=== PATIENT | female | born 1980 | race Caucasian/White ===

== ENCOUNTER 2016-07-12 07:08 | Emergency (ER) | payer BC ==
[2016-07-12 07:25] VITALS: BP 135/97
[2016-07-12] MEDS ORDERED: Ondansetron ODT TAB* 4 MG PO ONE (08:23)
--- NOTE | 2016-07-12 12:05 | UC ---
Toney Bustillo Anna, scribed for Amada Thompson MD on 07/12/16 at 0757 . HPI Febrile Illness - HPI Summary HPI Summary: Patient is a 36 y/o female coming to [facility] [place] [facility] [place] with achy all over, vomiting and diarrhea, sniffles, and frontal h/a that began approx 1:00 yesterday morning (appro x36 hr ago). Per triage notes, the patient describes the current severity of the symptoms as 3/10. Difficulty sleeping 2/2 discomfort and subj fever / chills. She additionally reports headache, fever, chills, body aches, abdominal cramping, and some rhinorrhea. Denies problems with urination. She has kept down one bottle of water since the symptoms began. She received her flu shot this year. No rash. Minimal cough. No particular sore throat. Currently on menstrual period. No melena. No brbpr. - History of Current Complaint Hx Obtained From: Patient - Allergy/Home Medications Allergies/Adverse Reactions: Allergies Allergy/AdvReac Type Severity Reaction Status Date / Time No Known Allergies Allergy Verified 06/09/14 09:23 Home Medications: Home Medications oxyCODONE/Acetamin 5/325 MG* [Percocet 5/325 TAB*] 07/12/16 [History] PMH/Surg Hx/FS Hx/Imm Hx Previously Healthy: Yes Endocrine/Hematology History: Denies: Hx Diabetes, Hx Thyroid Disease Cardiovascular History: Denies: Hx Congestive Heart Failure, Hx Hypertension Respiratory History: Reports: Hx Asthma - in childhood Denies: Hx Chronic Obstructive Pulmonary Disease (COPD) GI History: Denies: Hx Ulcer History: Denies: Hx Renal Disease - Surgical History Surgery Procedure, Year, and Place: uterine polyps removed Infectious Disease History: No Infectious Disease History: Denies: Hx Clostridium Difficile, Hx Hepatitis, Hx Human Immunodeficiency Virus (HIV), Hx of Known/Suspected MRSA, Hx Shingles, Hx Tuberculosis, Hx Known/ Suspected VRE, Hx Known/Suspected VRSA, History Other Infectious Disease, Traveled Outside the [place] in Last 30 Days - Family History Known Family History: Positive: Hypertension - Grandfather, Diabetes - Grandfather - Social History Occupation: Employed Full-time Lives: With Family Alcohol Use: Rare Substance Use Type: Reports: None Smoking Status (MU): Never Smoked Tobacco Review of Systems Constitutional: Fever, Chills Skin: Negative Eyes: Negative ENT: Nasal Discharge Respiratory: Negative Cardiovascular: Negative Gastrointestinal: Abdominal Pain, Vomiting, Diarrhea Genitourinary: Negative Motor: Negative Neurovascular: Negative Musculoskeletal: Myalgia Neurological: Headache Psychological: Negative All Other Systems Reviewed And Are Negative: Yes Physical Exam Triage Information Reviewed: Yes Vital Signs: Initial Vital Signs Temp 99.7 F 07/12/16 07:20 Pulse 98 07/12/16 07:20 Resp 18 07/12/16 07:20 BP 135/97 07/12/16 07:20 Pulse Ox 100 07/12/16 07:20 Vital Signs Reviewed: Yes Eye Exam: Normal ENT Exam: Normal Neck exam: Normal - No adenopathy appreciated Respiratory Exam: Normal - Chest non-tender, lungs clear, normal breath sounds, no respiratory distress, no accessory muscle use. Cardiovascular Exam: Normal - RRR, No murmur, pulses normal - sitting up, brisk capillary refill Abdomen Description: Positive: Nontender, No Organomegaly, Soft Bowel Sounds: Positive: Present Musculoskeletal Exam: Normal Musculoskeletal: Positive: Strength Intact Neurological Exam: Normal - Nonfocal, grossly intact Psychological Exam: Normal - Conversing easily and appropriately Skin Exam: Normal - no visible or reported rash Course/Dx - Course Course Of Treatment: No new problems in CCC. Considered below differential diagnoses. Feels a bit better s/p zofran. Thirsty. Drinks water little by little. Influenza negative. (see below). Poct urine dip (pt on menst period now) -reviewed with pt. + 500wbc's, +++ blood. I suspect contamination, also current menstrual period. However, will send cx, concomitant uti is possible. D/w pt. Script will be exscribed if needed. She will call in 2 days to check status as well. Poct strep neg. Zofran x 1 here. Certainly acute gastroenteritis. However, I am suspicious of flu-like illness. D/w pt. She is interested in starting tamiflu. Check blood work. CBC, crp / sed, cmp. Rx Zofran odt. F/u PCP recommended next week. Seek medical attention sooner for worse or new problems in the meantime. - Diagnoses Clinic Provider Diagnoses: Acute gastroenteritis. Suspicious concomitant flu- like illness. Discharge - Discharge Plan Condition: Stable Disposition: HOME Prescriptions: Ondansetron ODT TAB* [Zofran Odt TAB*] 4 mg PO Q6H PRN #12 tab.odt PRN Reason: Nausea Oseltamivir Phosphate [Tamiflu] 75 mg PO BID #10 cap Forms: *Work Release Referrals: Edmundo Presley MD [Primary Care Provider] - Additional Instructions: Please follow up with your primary care provider. Seek medical attention for worse or new problems in the meantime. Zofran as needed for nausea. Drink plenty of fluids, as much as possible. Blood work today - cbc, cmp, crp, sed r. Re blood in urine. Culture has been sent. Please have your urine rechecked in a couple weeks to ensure blood is gone. The documentation as recorded by the Toney valdes Anna accurately reflects the service I personally performed and the decisions made by me, Amada Thompson MD.
[2016-07-12 12:45] LABS: Hematocrit 42 % (35-47); Hemoglobin 13.7 g/dl (12.0-16.0); Mean Corpuscular HGB Conc 33 g/dl (31-36); Mean Corpuscular Hemoglobin 28 pg (27-31); Mean Corpuscular Volume 86 fL (80-97); Mean Platelet Volume 8 um3 (7.4-10.4); Red Blood Count 4.85 10^6/ul (4.0-5.4); Red Cell Distribution Width 13 % (10.5-15); White Blood Count 19.8 10^3/ul (3.5-10.8)
[2016-07-12 12:58] LABS: Albumin 4.1 g/dL (3.2-5.2); BUN/Creatinine Ratio 16.9 (8-20); C Reactive Protein 51.87 mg/L (< 5.00); Calcium 9.3 mg/dL (8.6-10.3); EGFR African American 119.8 (>60); EGFR Non-African American 93.1 (>60); Globulin 3.2 g/dL (2-4); Potassium 3.5 mmol/L (3.5-5.0); Total Bilirubin 0.9 mg/dL (0.2-1.0); Total Protein 7.3 g/dL (6.4-8.9)
[2016-07-12 14:39] LABS: Erythrocyte Sed Rate 27 mm/Hr (0-14)
== END 2016-07-12 09:17 | disposition home or self-care (01) ==
LOC: UCEAST 07:08
DX: K52.9 Noninfective gastroenteritis and colitis, unspecified (principal); R50.9 Fever, unspecified
CPT/HCPCS: 36415; 80053; 81002; 85025; 85652; 86140; 87086; 87502; 87651; 99212; A9270-GY; G0463

== ENCOUNTER 2016-07-13 15:41 | Inpatient (IN) | payer BC ==
[2016-07-13] MEDS ORDERED: NS 0.9% 1000 ML* 1,000 ML IV ONE (20:03)
[2016-07-13 20:34] LABS: Hematocrit 39 % (35-47); Hemoglobin 12.7 g/dl (12.0-16.0); Mean Corpuscular HGB Conc 33 g/dl (31-36); Mean Corpuscular Hemoglobin 28 pg (27-31); Mean Corpuscular Volume 86 fL (80-97); Mean Platelet Volume 8 um3 (7.4-10.4); Red Blood Count 4.55 10^6/ul (4.0-5.4); Red Cell Distribution Width 13 % (10.5-15); White Blood Count 13.9 10^3/ul (3.5-10.8)
[2016-07-13 20:52] LABS: ALT 60 U/L (7-52); AST 24 U/L (13-39); Albumin 3.8 g/dL (3.2-5.2); Alkaline Phosphatase 146 U/L (34-104); Amylase 21 U/L (29-103); Anion Gap 10 mmol/L (2-11); BUN/Creatinine Ratio 12.6 (8-20); Blood Urea Nitrogen 11 mg/dL (6-24); C Reactive Protein 189.33 mg/L (< 5.00); CO2 Carbon Dioxide 24 mmol/L (22-32); Chloride 97 mmol/L (101-111); EGFR African American 94.7 (>60); EGFR Non-African American 73.7 (>60); Globulin 3.5 g/dL (2-4); Glucose 93 mg/dL (70-100); Lipase 20 U/L (11.0-82.0); Potassium 3.2 mmol/L (3.5-5.0); Sodium 131 mmol/L (133-145); Total Protein 7.3 g/dL (6.4-8.9)
--- NOTE | 2016-07-13 21:26 | RAD ---
Indication: Right upper quadrant pain. Real-time sonography of the right upper quadrant was performed. The liver measures 18 cm in length. No focal lesions or intrahepatic biliary duct dilatation is noted. The gallbladder is partially distended. Gallbladder wall thickening is noted. Echogenic material is noted on the dependent portion of the gallbladder with posterior acoustic shadowing consistent with gallstones. Additionally there are nonshadowing nondependent areas within the gallbladder which may represent cholesterol polyps. A small amount of pericholecystic fluid is noted. The patient does have a sonographic Desai's sign. The common duct measures up to 5 mm which is not dilated. Right kidney measures 11.2 x 4.3 x 5.4 cm. No hydronephrosis is noted. The pancreas demonstrates no mass or pancreatic ductal dilatation. Aorta and inferior vena cava are unremarkable. IMPRESSION: DISTENDED GALLBLADDER WITH GALLBLADDER WALL THICKENING AND ECHOGENIC MATERIAL CONSISTENT WITH GALLSTONES AND LIKELY POLYPS. THE PATIENT DOES HAVE A POSITIVE SONOGRAPHIC DESAI'S SIGN. NO BILIARY DUCTAL DILATATION IS NOTED.
[2016-07-13 21:42] LABS: Urine Bacteria Absent (Absent); Urine Bilirubin Negative (Negative); Urine Glucose Negative (Negative); Urine Nitrite Negative (Negative)
[2016-07-13] MEDS ORDERED: Ondansetron INJ* 2 MG/ML VIAL IV ONE (22:01)
[2016-07-13] MEDS ORDERED: fentaNYL* 50 MCG/ML 2 ML VIAL (100 MCG VIAL) IV SLOW PU ONE (22:01)
[2016-07-13] MEDS: KCL 10 MEQ/50 ML IVPREMIX* 10 MEQ/50 ML BAG IV SCH (22:08)
[2016-07-13] MEDS ORDERED: Acetaminophen TAB* 325 MG PO PRN (22:08)
[2016-07-13] MEDS ORDERED: Piperac/Tazob 3.375 gm in NS* 3.375 GM/100 ML BAG IVPB ONE (22:15)
[2016-07-13] MEDS ORDERED: NS 0.9% 1000 ML* 1,000 ML IV SCH (22:15)
--- NOTE | 2016-07-13 22:56 | ED ---
Danie Bustillo Adam, scribed for Pal Richardson MD on 07/13/16 at 2026 . GI/ HPI - HPI Summary HPI Summary: Pt is a 36 year old female presenting with abdominal pain and vomiting. She began vomiting at 01:00 in the morning 2 days ago. The vomiting persisted so she went to urgent care yesterday. They called her with the results today and told her to come to the ED because her WBC count was over 20,000 and her liver function and CRP were elevated. Pt also c/o right-sided abdominal pain whenever she takes a deep breath. She denies diarrhea and constipation. Her last BM was yesterday morning. PMHx of ovarian cysts. She denies any Hx of gallbladder disease. No tobacco use. FMHx of HTN, HLD, CA, and cholecystectomy. - History of Current Complaint Chief Complaint: EDAbdPain Time Seen by Provider: 07/13/16 20:02 Stated Complaint: WHITE BLOOD COUNT 2000 ELEVATED LIVER FUNCTION Hx Obtained From: Patient Onset/Duration: Started Days Ago, Atraumatic, Still Present Timing: Constant, Lasting Days Severity: Moderate Current Severity: Moderate Pain Intensity: 4 Location of Pain: RUQ, RLQ Associated Signs and Symptoms: Positive: Nausea, Vomiting. Negative: Constipation, Diarrhea Aggravating Factor(s): Deep Breaths Alleviating Factor(s): Nothing - Allergy/Home Medications Allergies/Adverse Reactions: Allergies Allergy/AdvReac Type Severity Reaction Status Date / Time No Known Allergies Allergy Verified 07/13/16 16:55 PMH/Surg Hx/FS Hx/Imm Hx Endocrine/Hematology History: Denies: Hx Diabetes, Hx Thyroid Disease Cardiovascular History: Denies: Hx Congestive Heart Failure, Hx Hypertension Respiratory History: Reports: Hx Asthma - in childhood Denies: Hx Chronic Obstructive Pulmonary Disease (COPD) GI History: Denies: Hx Ulcer History: Denies: Hx Renal Disease - Surgical History Surgery Procedure, Year, and Place: uterine polyps removed Infectious Disease History: No Infectious Disease History: Denies: Hx Clostridium Difficile, Hx Hepatitis, Hx Human Immunodeficiency Virus (HIV), Hx of Known/Suspected MRSA, Hx Shingles, Hx Tuberculosis, Hx Known/ Suspected VRE, Hx Known/Suspected VRSA, History Other Infectious Disease, Traveled Outside the [place] in Last 30 Days - Family History Known Family History: Positive: Hypertension - Grandfather, Diabetes - Grandfather, Other - HLD, CA, cholecystectomy - Social History Occupation: Employed Full-time Lives: With Family - Alcohol Use: Rare Hx Substance Use: No Substance Use Type: Reports: None Hx Tobacco Use: No Smoking Status (MU): Never Smoked Tobacco Review of Systems Positive: Fever Positive: Abdominal Pain, Vomiting. Negative: Diarrhea All Other Systems Reviewed And Are Negative: Yes Physical Exam - Summary Physical Exam Summary: VITAL SIGNS: Reviewed. GENERAL: Patient is an obese female who is lying comfortable in the stretcher. Patient is not in any acute respiratory distress. HEAD AND FACE: Normocephalic and atraumatic. EYES: PERRLA, EOMI x 2, No injected conjunctiva. EARS: Hearing grossly intact. Ear canals and tympanic membranes are WNL. MOUTH: Oropharynx within normal limits. NECK: Supple, trachea is midline, no adenopathy, no JVD. CHEST: Symmetric, no tenderness at palpation LUNGS: Clear to auscultation bilaterally. No wheezing or crackles. CVS: RRR,, S1 and S2 present, no murmurs or gallops appreciated. ABDOMEN: Soft, RUQ tenderness. No signs of distention. Positive bowel sounds. No rebound no guarding, and no masses palpated. No abdominal bruit or pulsations. EXTREMITIES: FROM in all major joints, no edema, no cyanosis or clubbing. NEURO: Alert and oriented x 3. No acute neurological deficits. Speech is normal. SKIN: Dry and warm Triage Information Reviewed: Yes Vital Signs On Initial Exam: Initial Vitals Temp Pulse Resp BP Pulse Ox 100 F 96 16 145/79 99 07/13/16 16:55 07/13/16 16:55 07/13/16 16:55 07/13/16 16:55 07/13/16 16:55 Vital Signs Reviewed: Yes Diagnostics - Vital Signs Vital Signs Temp Pulse Resp BP Pulse Ox 07/13/16 16:55 100 F 96 16 145/79 99 - Laboratory Lab Results: Lab Results 07/13/16 07/13/16 Range/Units 20:15 20:15 WBC 13.9 H (3.5-10.8) 10^3/ul RBC 4.55 (4.0-5.4) 10^6/ul Hgb 12.7 (12.0-16.0) g/dl Hct 39 (35-47) % MCV 86 (80-97) fL MCH 28 (27-31) pg MCHC 33 (31-36) g/dl RDW 13 (10.5-15) % Plt Count 234 (150-450) 10^3/ul MPV 8 (7.4-10.4) um3 Neut % (Auto) 79.6 (38-83) % Lymph % (Auto) 12.5 L (25-47) % Hand % (Auto) 6.5 (1-9) % Eos % (Auto) 0.7 (0-6) % Baso % (Auto) 0.7 (0-2) % Absolute Neuts (auto) 11.1 H (1.5-7.7) 10^3/ul Absolute Lymphs (auto) 1.7 (1.0-4.8) 10^3/ul Absolute Monos (auto) 0.9 H (0-0.8) 10^3/ul Absolute Eos (auto) 0.1 (0-0.6) 10^3/ul Absolute Basos (auto) 0.1 (0-0.2) 10^3/ul Absolute Nucleated RBC 0 10^3/ul Nucleated RBC % 0 Sodium 131 L (133-145) mmol/L Potassium 3.2 L (3.5-5.0) mmol/L Chloride 97 L (101-111) mmol/L Carbon Dioxide 24 (22-32) mmol/L Anion Gap 10 (2-11) mmol/L BUN 11 (6-24) mg/dL Creatinine 0.87 (0.51-0.95) mg/dL Est GFR ( Amer) 94.7 (>60) Est GFR (Non-Af Amer) 73.7 (>60) BUN/Creatinine Ratio 12.6 (8-20) Glucose 93 (70-100) mg/dL Calcium 9.0 (8.6-10.3) mg/dL Total Bilirubin 0.90 (0.2-1.0) mg/dL AST 24 (13-39) U/L ALT 60 H (7-52) U/L Alkaline Phosphatase 146 H (34-104) U/L C-Reactive Protein 189.33 H (< 5.00) mg/L Total Protein 7.3 (6.4-8.9) g/dL Albumin 3.8 (3.2-5.2) g/dL Globulin 3.5 (2-4) g/dL Albumin/Globulin Ratio 1.1 (1-3) Amylase 21 L (29-103) U/L Lipase 20 (11.0-82.0) U/L Beta HCG, Quant < 0.60 mIU/mL Result Diagrams: 07/13/16 20:15 07/13/16 20:15 Lab Statement: Any lab studies that have been ordered have been reviewed, and results considered in the medical decision making process. - Additional Comments Diagnostic Additional Comments: ABDOMEN ULTRASOUND - IMPRESSION: DISTENDED GALLBLADDER WITH GALLBLADDER WALL THICKENING AND ECHOGENIC MATERIAL CONSISTENT WITH GALLSTONES AND LIKELY POLYPS. THE PATIENT DOES HAVE A POSITIVE SONOGRAPHIC FIGUEROA'S SIGN. NO BILIARY DUCTAL DILATATION IS NOTED. GIGU Course/Dx - Course Assessment/Plan: Pt is a 36 year old female presenting with abdominal pain and vomiting. She began vomiting at 01:00 in the morning 2 days ago. The vomiting persisted so she went to urgent care yesterday. They called her with the results today and told her to come to the ED because her WBC count was over 20, 000 and her liver function and CRP were elevated. Pt also c/o right-sided abdominal pain whenever she takes a deep breath. She denies diarrhea and constipation. Blood work shows an increase WBCs 13.9, potassium of 3.2 and increased CRP. RUQ U/S impression: Distended gallbladder wall with thickening and echogenic material consistent with gallstones and likely polyps. No positive murphys sign. I discussed the case with Dr. Solares who came and examined the patient. He decide to admit patient to his service for possible cholecystitis. Patient is hemodynamically stable alert and oriented x 3. - Diagnoses Differential Diagnoses - Female: Cholecystitis, Colitis Provider Diagnoses: Acute cholecystitis - Physician Notifications Discussed Care Of Patient With: Dr. Solares at 22:05. Patient will be admitted. Discharge - Discharge Plan Condition: Stable Disposition: ADMITTED TO [facility] documentation as recorded by the Danie valdes Adam accurately reflects the service I personally performed and the decisions made by me, Pal Richardson MD.
--- NOTE | 2016-07-13 23:39 | HP ---
ADMISSION HISTORY AND PHYSICAL NOTE: DATE OF ADMISSION: 07/13/16 REASON FOR ADMISSION: Right upper quadrant abdominal pain with nausea and vomiting and a fever. HISTORY OF PRESENT ILLNESS: Ms. Cherrie Poe is a healthy 36-year-old obese woman, who on early Monday morning, developed nausea and vomiting with right upper quadrant abdominal pain radiating to her back. She describes the pain as somewhat severe and crampy, "knotting type," and has been persistent ever since that time. She had been most of Monday throwing up with no diarrhea. She had some headache and some muscle aches, but no diarrhea or otherwise change in her bowel habits or other location of abdominal discomfort. She did have a fever and she said she may have had a few chills. Yesterday, her symptoms persisted and she went to the Urgent Care. At that time , she was noted to have a white blood cell count of 19,800 and slight shift in neutrophil percentage. She had elevation of her AST, ALT, and alkaline phosphatase and a C-reactive protein of 51.8. AST and ALT are both in the low 100s. Urine test was negative today and amylase and lipase were normal. She was discharged home. There was a concern that she may have had the flu and was given a Tamiflu. She did receive the flu shot, however, earlier this year. Today, she was called from the Urgent Care stating that we had a white count that was elevated and she needed to go to the emergency room. Here, she was noted to have a temperature of 100; white count down at just about 14,000; and improvement in her liver transaminase. Today, C-reactive protein, however, is 190. test was negative. Today because she had exquisite right upper quadrant abdominal pain, she underwent an ultrasound of her gallbladder, which I did review. This does show a thickened gallbladder wall with stones and sludge, pericholecystic fluid with tenderness on palpation with the ultrasound machine consistent with probable acute calculus cholecystitis. She does give a history of some intermittent right upper quadrant abdominal pain after eating larger fatty meals over the past several years, which lasts for several hours, but has never had symptoms like this. She did receive a flu shot earlier this year. PAST MEDICAL HISTORY: 1. Obesity. 2. Ovarian cysts. PAST SURGICAL HISTORY: Past abdominal surgery is none. MEDICINES: Include: 1. Oxycodone p.r.n. for cysts. 2. Ibuprofen p.r.n. 3. Zantac p.r.n. ALLERGIES: She has no known drug allergies. SOCIAL HISTORY: She has a 10-year-old. She has a male significant other. She works at [employer]. Does not use tobacco. Drinks alcohol on a very rare social basis. REVIEW OF SYSTEMS: Cerebrovascular: No dizziness or visual disturbances. She has had a headache earlier in the week. Cardiovascular: No chest pain or shortness of breath. Pulmonary: No wheezing or hemoptysis. GI: As per above. : No urgency or hematuria. She is completing her menstrual period. PHYSICAL EXAMINATION GENERAL: She is an overweight female with normal attention to grooming. She is quite pleasant, appears to be somewhat fatigued, however. VITAL SIGNS: Temperature is 100, pulse 96, and blood pressure 145/79. HEENT: Her sclerae were anicteric. Oral mucosa is dry. NECK: Without masses. Trachea was midline. LUNGS: Clear to auscultation with normal respiratory effort. HEART: Regular rate and rhythm without murmurs, rubs, or gallops. ABDOMEN: Soft and nondistended. No prior surgical incisions or hernias that I can appreciate. She had normoactive bowel sounds throughout. She had an exquisite tenderness in the right upper quadrant with rigidity in volunteer and guarding as well. PSYCHIATRIC: She is awake, alert, and oriented x3. She has normal judgment and insight. IMPRESSION: Acute calculus cholecystitis, right upper quadrant abdominal pain , and leukocytosis. I cannot explain why the white blood cell count is somewhat lower today, but she certainly may have started out with the more typical viral illness. It seems to have developed into an acute calculus cholecystitis by history and clinical exam as well as the ultrasound findings. I discussed these findings with both patient and her significant other here in the emergency room, but I recommend that she would be admitted and kept n.p.o. with plans for cholecystectomy tomorrow. We will start intravenous antibiotics and keep her n.p.o. and give her analgesia as needed. In addition, her potassium will be repleted and she will be given antiemetic as needed. I also explained to her that the operative time tomorrow is unclear and it will most likely be later in the day due to the schedule and that as a surgical group we work together and depending on operating room availability and surgeon schedules, it may be any of our 5 surgeons who perform the operation and she is comfortable with this. In addition, the procedure of laparoscopic cholecystectomy as well as open cholecystectomy was discussed including the risks, benefits, and alternatives; recovery time; and hospital stay; and her questions were answered. CC: [facility]; Dr. Edmundo Presley in [place] * [id number]/[facility] #: [id number] LEONEL
[2016-07-13] MEDS: Morphine INJ* 2 MG/ML 1 ML CARPUJECT IV PRN (23:44)
[2016-07-13] MEDS: NS 0.9% w/ 20 Meq KCL 1000 ML* 1,000 ML IV SCH (23:58)
[2016-07-14] MEDS: Ondansetron INJ* 2 MG/ML VIAL IV PRN ×3 (00:11→14:04)
[2016-07-14] MEDS: KCL 10 MEQ/50 ML IVPREMIX* 10 MEQ/50 ML BAG IV SCH (00:41)
[2016-07-14] MEDS: Morphine INJ* 2 MG/ML 1 ML CARPUJECT IV PRN (02:07)
[2016-07-14] MEDS ORDERED: Morphine INJ* 4 MG/ML 1 ML CARPUJECT ONE (02:26)
[2016-07-14] MEDS ORDERED: PROCHLORPERAZINE INJ 5 MG/ML 2 ML VIAL IV ONE (02:30)
[2016-07-14] MEDS: Morphine INJ* 4 MG/ML 1 ML CARPUJECT IV PRN ×7 (04:02→16:35)
[2016-07-14] MEDS: Piperac/Tazob 3.375 gm in NS* 3.375 GM/100 ML BAG IVPB SCH ×3 (05:49→23:17)
[2016-07-14 06:11] LABS: Hematocrit 35 % (35-47); Hemoglobin 11.7 g/dl (12.0-16.0); Mean Corpuscular HGB Conc 33 g/dl (31-36); Mean Corpuscular Hemoglobin 28 pg (27-31); Mean Corpuscular Volume 86 fL (80-97); Mean Platelet Volume 8 um3 (7.4-10.4); Red Blood Count 4.11 10^6/ul (4.0-5.4); Red Cell Distribution Width 13 % (10.5-15); White Blood Count 11.9 10^3/ul (3.5-10.8)
[2016-07-14 06:29] LABS: Albumin 3.1 g/dL (3.2-5.2); Calcium 7.8 mg/dL (8.6-10.3); EGFR African American 121.8 (>60); EGFR Non-African American 94.7 (>60); Globulin 2.9 g/dL (2-4); Potassium 3.7 mmol/L (3.5-5.0); Total Bilirubin 0.8 mg/dL (0.2-1.0)
[2016-07-14] MEDS: NS 0.9% w/ 20 Meq KCL 1000 ML* 1,000 ML IV SCH ×2 (10:47→22:54)
[2016-07-14] MEDS ORDERED: Morphine INJ* 10 MG/ML 1 ML CARPUJECT ONE (16:28)
[2016-07-14] MEDS ORDERED: Midazolam* 1 MG/ML 2 ML VIAL (2 MG) ONE (18:16)
[2016-07-14] MEDS ORDERED: fentaNYL* 50 MCG/ML 2 ML VIAL (100 MCG VIAL) ONE ×3 (18:16→19:53)
[2016-07-14] MEDS ORDERED: Ondansetron INJ* 2 MG/ML VIAL ONE (18:18)
[2016-07-14] MEDS ORDERED: Lidocaine 2% MPF* 2 ML VIAL ONE (18:18)
[2016-07-14] MEDS ORDERED: Propofol* 10 MG/ML 20 ML BTL IV PUSH ONE ×2 (18:18→19:20)
[2016-07-14] MEDS ORDERED: Dexamethasone IV* 4 MG/ML 1 ML (4 MG) ONE (18:18)
[2016-07-14] MEDS ORDERED: Succinylcholine* 20 MG/ML 10 ML VIAL ONE (18:18)
[2016-07-14] MEDS ORDERED: Heparin VIAL(*) 5000 UNITS/ML VIAL (FIVE THOUSAND) ONE (18:20)
[2016-07-14] MEDS ORDERED: Bupivacaine 0.25% EPI 200,000* 30 ML SDV ONE (18:49)
[2016-07-14] MEDS ORDERED: Rocuronium* 10 MG/ML VIAL ONE (19:21)
[2016-07-14] MEDS ORDERED: fentaNYL* 50 MCG/ML 2 ML VIAL (100 MCG VIAL) IV PRN (20:13)
[2016-07-14] MEDS ORDERED: Scopolamine 1.5 mg* PATCH TRANSDERM PRN (20:13)
[2016-07-14] MEDS ORDERED: Metoclopramide IV* 5 MG/ML 2 ML VIAL IV PRN (20:13)
[2016-07-14] MEDS ORDERED: HYDROmorphone INJ* 2 MG/ML CARPUJECT SYRINGE ONE (20:16)
[2016-07-14] MEDS: HYDROmorphone INJ* 1 MG/ML CARPUJECT SYRINGE IV PRN ×5 (20:19→20:49)
[2016-07-14] MEDS: Heparin VIAL(*) 5000 UNITS/ML VIAL (FIVE THOUSAND) SUBCUT SCH (22:57)
[2016-07-15] MEDS: Morphine INJ* 4 MG/ML 1 ML CARPUJECT IV PRN ×2 (02:05→04:18)
[2016-07-15] MEDS: HYDROcodone/ACETAMIN 5-325 MG* 1 TAB PO PRN ×3 (02:06→10:19)
[2016-07-15] MEDS ORDERED: Piperac/Tazob 3.375 gm in NS* 3.375 GM/100 ML BAG IVPB SCH (04:00)
--- NOTE | 2016-07-15 04:56 | OP ---
DATE OF OPERATION: 07/14/16 - ROOM #341 DATE OF : 80 SURGEON: Murphy Cast MD MEMS PROCESS ENGINEER: LOUIS Trinh ANESTHESIOLOGIST: Mona Mercado MD ANESTHESIA: General anesthetic, local infiltration. PRE-OP DIAGNOSIS: Acute cholecystitis. POST-OP DIAGNOSIS: Acute cholecystitis. OPERATIVE PROCEDURE: Laparoscopic cholecystectomy. DESCRIPTION OF PROCEDURE: The patient was supine on the operating room table. After adequate general anesthetic, compression stockings, Connor Hugger warmer, and intravenous antibiotics, the abdomen was prepped with antiseptic, and draped in a sterile fashion. Local infiltrative anesthesia was administered. The right upper quadrant 5 mm site was created and Visiport cannula was placed under direct vision. Insufflation was carried out with carbon dioxide. Additional cannulae 12 mm subxiphoid and 5 mm supraumbilical, and right anterior axillary line placed through small stab wounds under direct vision. The gallbladder was acutely inflamed. Omentum was densely adherent over the dome of the gallbladder. This was taken down using blunt dissection and electrocautery. There was a little oozing, but not too bad and then the omentum was taken away down. The neck of the gladder was not terribly inflamed. In order to achieve retraction, the dome of the gallbladder was opened up and white bile was encountered. Gallbladder was suctioned out and this enabled it to be retracted. There was a stone down at the neck of the gallbladder and this was milked up out of the neck. The cystic duct was quite thickened. It was dissected free and dissection was carried out until the cystic artery was really identified. Additionally dissection was carried out until critical views obtained. Cystic artery was clipped right near the gallbladder and divided. The cystic duct was thick and it was felt to be too big for the clips and therefore the gallbladder cystic duct junction was divided using an Endo PITER stapler with a 45 mm mullen load. The gallbladder was taken off the liver bed using electrocautery. Hemostasis was surprisingly good considering the amount of inflammation. A couple of stones leaked out, but readily captured. The gallbladder was placed in the retrieval bag and then brought out through the subxiphoid site, which needed to be enlarged for that purpose. The operative field was well irrigated with warm saline solution. Free fluid was suctioned out and hemostasis was again confirmed, and again the free fluid was suctioned. The cannula removed. Pneumoperitoneum was allowed to escape. The fascia in the epigastric region was closed with 0 Polysorb and the skin in all cases with 5-0 Polysorb followed by Steri-Strips. She tolerated the procedure well, was brought to the recovery in good condition. No complications. No drains. Pathological specimen, gallbladder. Sponge and instrument counts correct. Estimated blood loss was less than 100 mL. CC: Murphy Cast MD; Dr. Edmundo Presley * [id number]/[facility] #: [id number] [facility]
[2016-07-15] MEDS: Heparin VIAL(*) 5000 UNITS/ML VIAL (FIVE THOUSAND) SUBCUT SCH (06:22)
[2016-07-15 08:03] VITALS: BP 136/59
== END 2016-07-15 11:00 | disposition home or self-care (01) | DRG 263 ==
LOC: ED 15:41 → SSU 22:05 → OBSVTOIN 07-14 08:43
PROVIDERS: ADMIT Surgery; ATTEND Surgery
PROC: 0FT44ZZ Resection of Gallbladder, Percutaneous Endoscopic Approach (ICD-10-PCS; principal; 2016-07-14 16:45)
DX: K80.00 Calculus of gallbladder with acute cholecystitis without obstruction (principal); D68.59 Other primary thrombophilia; Z68.41 Body mass index [BMI] 40.0-44.9, adult; N83.209 Unspecified ovarian cyst, unspecified side; Z82.49 Family history of ischemic heart disease and other diseases of the circulatory system; J45.909 Unspecified asthma, uncomplicated; Z80.9 Family history of malignant neoplasm, unspecified; E66.9 Obesity, unspecified
CPT/HCPCS: 36415; 76705; 80053; 81003; 81015; 82150; 83690; 83735; 84702; 85025; 86140; 88304; C1776; G0378; J0330; J0780; J1100; J1170; J1644; J2250; J2270; J2405; J2543; J2704; J3010; J3480

== ENCOUNTER 2017-06-07 07:40 | Emergency (ER) | payer BC ==
[2017-06-07 07:59] VITALS: BP 124/68
[2017-06-07] MEDS ORDERED: Acetaminophen TAB* 325 MG PO ONE (08:29)
--- NOTE | 2017-06-07 08:38 | UC ---
Shoulder Pain HPI - HPI Summary HPI Summary: Pt presents with right anterior shoulder pain progressive since Monday. Pt denies trauma or repeititve injury. Pain increass with extension and abduction. Pt holding to body for comfort. No paresthesia, color changes of hand, edema, or weakness. pt is RHD. No h/o shoulder surgery or injury. No sports. Pt taking Motrin with little relief. Pt's medications reviewed this visit - History of Current Complaint Chief Complaint: UCUpperExtremity Stated Complaint: RIGHT ARM PAIN Time Seen by Provider: 06/07/17 07:46 Hx Obtained From: Patient Hx Last Menstrual Period: 06/07/17 ?: No Onset/Duration: Gradual Onset Timing: Constant Severity Initially: Moderate Severity Currently: Moderate Location Of Pain: Is Discrete @ - right anterior shoulder Character: Sharp Aggravating Factor(s): Movement, Lifting, Extension Alleviating Factor(s): Rest, OTC Meds Associated Signs And Symptoms: Positive: Negative - Allergies/Home Medications Allergies/Adverse Reactions: Allergies Allergy/AdvReac Type Severity Reaction Status Date / Time No Known Allergies Allergy Verified 06/07/17 07:53 Home Medications: Home Medications FLUoxetine CAP* [Prozac CAP*] 06/07/17 [History] traZODone TAB* [Desyrel TAB*] 06/07/17 [History] PMH/Surg Hx/FS Hx/Imm Hx Previously Healthy: Yes - PRotein C def - no h/o of DVT - Surgical History Surgical History: Yes Surgery Procedure, Year, and Place: uterine polyps removed, cholecystectomy - Family History Known Family History: Positive: None, Hypertension - Grandfather, Diabetes - Grandfather, Other - HLD, [place], cholecystectomy - Social History Occupation: Employed Full-time Lives: With Family Alcohol Use: Rare Substance Use Type: None Smoking Status (MU): Never Smoked Tobacco - Immunization History Most Recent Influenza Vaccination: 2016 Most Recent Tetanus Shot: utd Most Recent Pneumonia Vaccination: none Review of Systems Constitutional: Negative Respiratory: Negative Cardiovascular: Negative Musculoskeletal: Other: - right shoulder All Other Systems Reviewed And Are Negative: Yes Physical Exam Triage Information Reviewed: Yes Appearance: Well-Appearing, No Pain Distress, Well-Nourished, Other: - discomfort with movement Vital Signs: Initial Vital Signs Temp 98.3 F 06/07/17 07:56 Pulse 84 06/07/17 07:56 Resp 16 06/07/17 07:56 BP 124/68 06/07/17 07:56 Pulse Ox 100 06/07/17 07:56 Eyes: Positive: Conjunctiva Clear ENT: Positive: Hearing grossly normal Neck exam: Normal Neck: Positive: Supple, Nontender, No Lymphadenopathy Respiratory Exam: Normal Respiratory: Positive: Chest non-tender, Lungs clear, Normal breath sounds, No respiratory distress, No accessory muscle use Cardiovascular Exam: Normal Cardiovascular: Positive: RRR, No Murmur, Other: - 2+ radial, 2+ ulnar Musculoskeletal: Positive: Other: - no pain spinous process c/t/l/s Full AROM + TTP right anterior shoulder along jointline with direct palp. + extension to 45 second to pain PRM to nearly 90 + abduction 45 limit secont to pain PROM to 70 + flex/ext elbow + pronate/supinate elbow + wrist flex/ext Neurological: Positive: Other: - + thumb up, a ok, finger cross, finger spread + gross sensation throughout Psychological Exam: Normal Skin Exam: Normal Diagnostics - Laboratory Diagnostic Studies Completed/Ordered: Patient Name: CHERRIE ARCHER . Ordering Physician: Cherrie Murrell MD Acct.#: [id number]. : 1980 Age: 37 Sex: F Location: [facility]. Exam Date: 12/17 ADM Status: REG ER. Order Information: SHOULDER RIGHT 2+ VWS. Accession Number: [id number]. CPT: 55504. HISTORY: Right anterior shoulder pain. COMPARISONS: None. VIEWS: 4, Frontal internal rotation, external rotation, outlet, and axillary views of the. right shoulder. FINDINGS: BONE DENSITY: Normal. BONES: There is no displaced fracture. JOINTS: There is no arthropathy. ALIGNMENT: There is no dislocation. SOFT TISSUES: There is soft tissue calcification along the superior glenoid in the. proximal humerus. OTHER FINDINGS: None. IMPRESSION: SOFT TISSUE CALCIFICATIONS SUGGESTIVE OF A CALCIFIC TENDINOPATHY. NO ACUTE OSSEOUS INJURY. IF SYMPTOMS PERSIST, RECOMMEND REPEAT IMAGING. . <Electronically signed by Jose Gonzalez MD in OV> 06/07/17903. Dictated By: Jose Gonzalez MD. Dictated Date/Time: 06/07/17903. Transcribed Date/Time: 06/07/17 - Radiology No standard instances Xray Interpretation: Positive (See Comments) Radiology Interpretation Completed By: Radiologist - Patient Name: CHERRIE ARCHER Medical Record#: [id number] Ordering Physician: Cherrie Murrell MD Acct.#: [id number] : 1980 Age: 37 Sex: F Location: [facility] Exam Date: 06/07/17828 ADM Status: REG ER Order Information: SHOULDER RIGHT 2 + VWS Accession Number: [id number] CPT: 17951 HISTORY: Right anterior shoulder pain COMPARISONS: None VIEWS: 4, Frontal internal rotation, external rotation , outlet, and axillary views of the right shoulder FINDINGS: BONE DENSITY: Normal. BONES: There is no displaced fracture. JOINTS: There is no arthropathy. ALIGNMENT: There is no dislocation. SOFT TISSUES: There is soft tissue calcification along the superior glenoid in the proximal humerus OTHER FINDINGS : None. IMPRESSION: SOFT TISSUE CALCIFICATIONS SUGGESTIVE OF A CALCIFIC TENDINOPATHY. NO ACUTE OSSEOUS INJURY. IF SYMPTOMS PERSIST, RECOMMEND REPEAT IMAGING. < Electronically signed by Jose Gonzalez MD in OV> 06/07/17903 Dictated By: Jose Gonzalez MD Dictated Date/Time: 06/07/17903 Transcribed Date/ Time: 06/07/17 Shoulder Course/Dx - Course Assessment/Plan: Pt with right anterior shoulder pain, non traumatic since Monday. Pt with pain anterior joint line - improved PROM. no concern for infection. PT with protein C- no clinical concern for DVT given location pain pain. Will check imaging. sliong. motrin/apap. ice. PCP f.u pt comfortable and in agreement with plan - Differential Dx/Diagnosis Provider Diagnoses: right shoulder pain Discharge - Discharge Plan Condition: Stable Disposition: HOME Patient Education Materials: Tendinitis (ED) Referrals: Franco Madrigal MD [Primary Care Provider] - Additional Instructions: - wear sling for comfort and support. Take your arm out of your sling 2-3 times a day - slowly make circles in your shoulder and bend/straighten your elbow - apply ice (20 minutes at a time) 2-3 times a day - do not put directly on your skin - after 2 days, apply heat to your shoulder - Okay to alternate ibuprofen (Advil, Motrin) 600mg and tylenol every 3hours for pain. - Contact your doctor to schedule a follow-up appointment. Contact your doctor or return with questions or concerns
--- NOTE | 2017-06-07 09:08 | RAD ---
HISTORY: Right anterior shoulder pain COMPARISONS: None VIEWS: 4, Frontal internal rotation, external rotation, outlet, and axillary views of the right shoulder FINDINGS: BONE DENSITY: Normal. BONES: There is no displaced fracture. JOINTS: There is no arthropathy. ALIGNMENT: There is no dislocation. SOFT TISSUES: There is soft tissue calcification along the superior glenoid in the proximal humerus OTHER FINDINGS: None. IMPRESSION: SOFT TISSUE CALCIFICATIONS SUGGESTIVE OF A CALCIFIC TENDINOPATHY. NO ACUTE OSSEOUS INJURY. IF SYMPTOMS PERSIST, RECOMMEND REPEAT IMAGING.
== END 2017-06-07 09:18 | disposition home or self-care (01) ==
LOC: UCEAST 07:40
DX: M25.511 Pain in right shoulder (principal)
CPT/HCPCS: 99212; A9270-GY; G0463

== ENCOUNTER 2018-04-11 07:48 | Emergency (ER) | payer BC ==
[2018-04-11] MEDS ORDERED: Albuterol 2.5 MG/3 ML NEB.SOL* (0.083%) INH ONE (08:13)
--- NOTE | 2018-04-11 08:19 | UC ---
Hip/Pelvis Pain - HPI Summary HPI Summary: has two major issues, persistent cough with wheezing and menstrual cramps which began two days ago. missed her last period. usually periods are regular. hx. of ovarian cysts in the past, bleeding not significantly more than usual. - History Of Current Complaint Chief Complaint: UCAbdominalPain Stated Complaint: CONGESTED,CRAMPS Time Seen by Provider: 04/11/18 08:07 Hx Obtained From: Patient Hx Last Menstrual Period: 04/10/18 ?: No Onset/Duration: Lasting Days Timing: Intermittent Episodes Lasting: - 10-15 minutes at a time Severity Initially: Moderate Severity Currently: Mild Pain Intensity: 10 Location: Discrete At: - left lower quadrant Aggravating Factor(s): Nothing Alleviating Factor(s): Other - hx. of percocet use for menstrual cramps , naprosyn was used and did not help Associated Signs And Symptoms: Positive: Negative - Allergies/Home Medications Allergies/Adverse Reactions: Allergies Allergy/AdvReac Type Severity Reaction Status Date / Time No Known Allergies Allergy Verified 04/11/18 07:57 PMH/Surg Hx/FS Hx/Imm Hx Previously Healthy: Yes Respiratory History: Asthma - last asthma attack at age 18 Other GI/ History: hx. of ovarian cysts - Surgical History Surgical History: Yes Surgery Procedure, Year, and Place: uterine polyps removed, cholecystectomy - Family History Known Family History: Positive: None, Hypertension - Grandfather, Diabetes - Grandfather, Other - HLD, [place], cholecystectomy - Social History Alcohol Use: Rare Substance Use Type: None Smoking Status (MU): Never Smoked Tobacco - Immunization History Most Recent Influenza Vaccination: 2016 Most Recent Tetanus Shot: utd Most Recent Pneumonia Vaccination: none Review of Systems Constitutional: Negative Skin: Negative Eyes: Negative ENT: Negative Respiratory: Cough - wheezing Cardiovascular: Negative Gastrointestinal: Negative Motor: Negative Neurovascular: Negative Musculoskeletal: Negative Is Patient Immunocompromised?: No All Other Systems Reviewed And Are Negative: Yes Physical Exam Triage Information Reviewed: Yes Appearance: Well-Appearing Vital Signs: Initial Vital Signs Temp 36.6 C 04/11/18 07:53 Pulse 78 04/11/18 07:53 Resp 17 04/11/18 07:53 BP 126/77 04/11/18 07:53 Pulse Ox 98 04/11/18 07:53 Vital Signs Reviewed: Yes Eye Exam: Normal Eyes: Positive: Conjunctiva Clear ENT: Positive: Normal ENT inspection Respiratory: Positive: Wheezing - expiratory wheezing bilaterally Cardiovascular Exam: Normal Cardiovascular: Positive: RRR Abdominal Exam: Normal Abdomen Description: Positive: Other: - nontender, no rigidity or rebound Musculoskeletal Exam: Normal Hip Injury Course/Dx - Differential Dx/Diagnosis Provider Diagnoses: dysmennorhea, asthma exacerbation , uti Discharge - Sign-Out/Discharge Documenting (check all that apply): Patient Departure All imaging exams completed and their final reports reviewed: Yes - Discharge Plan Condition: Good Disposition: HOME Prescriptions: Albuterol 2.5MG/3ML (0.083%)* [Ventolin 2.5 MG/3 ML NEB.YAMILEX*] 2.5 mg INH Q6H PRN 30 Days #120 neb.yamilex PRN Reason: Cough Ciprofloxacin TAB* [Cipro 250 MG Tab*] 250 mg PO BID #8 tab Mefenamic Acid 250 mg PO Q6HR PRN 5 Days #20 capsule PRN Reason: Discomfort Patient Education Materials: Dysmenorrhea (ED), Asthma (DC), Urinary Tract Infection in Women (DC), Viral Syndrome (ED) Referrals: Franco Madrigal MD [Primary Care Provider] - - Billing Disposition and Condition Condition: GOOD Disposition: Home
--- NOTE | 2018-04-11 09:05 | RAD ---
HISTORY: cough, s/p radiation to the breast COMPARISONS: None VIEWS: 4: Frontal dual-energy and lateral views of the chest. FINDINGS: CARDIOMEDIASTINAL SILHOUETTE: The cardiomediastinal silhouette is normal. TAYE: The taye are normal. PLEURA: The costophrenic angles are sharp. No pleural abnormalities are noted. LUNG PARENCHYMA: The lungs are clear. ABDOMEN: The upper abdomen is clear. There is no subphrenic gas. BONES AND SOFT TISSUES: No bone or soft tissue abnormalities are noted. OTHER: None. IMPRESSION: NO ACTIVE CARDIOPULMONARY DISEASE.
[2018-04-11] MEDS ORDERED: Ketorolac INJ* 60 MG/2 ML VIAL IM ONE (09:19)
[2018-04-11 10:12] VITALS: BP 132/81
== END 2018-04-11 10:42 | disposition home or self-care (01) ==
LOC: UCEAST 07:48
DX: J45.901 Unspecified asthma with (acute) exacerbation (principal); N94.6 Dysmenorrhea, unspecified; N39.0 Urinary tract infection, site not specified
CPT/HCPCS: 71046; 81003; 84702; 96372; 99212; G0463; J1885

== ENCOUNTER 2019-08-25 17:21 | Emergency (ER) | payer BC ==
[2019-08-25] MEDS ORDERED: Tetan/Diph/Pertus SYR(Tdap)* 0.5 ML SYR(BOOSTRIX) use SYR contains LATEX IM ONE (17:24)
--- NOTE | 2019-08-25 17:25 | UC ---
Laceration HPI - HPI Summary HPI Summary: 39 yo female presents with right 5th finger laceration. About 45min [employer] to she was using a mandolin at home without the guard and sliced her right 5th finger pad. She bandaged the area and came to . She is unsure the date of her last tetanus. - History Of Current Complaint Stated Complaint: FINGER INJURY Time Seen by Provider: 08/25/19 17:24 Hx Obtained From: Patient Hx Last Menstrual Period: 04/10/18 Laceration Location: Finger Mechanism Of Injury: Sharp Trauma Onset/Duration: Sudden Onset Severity: Severe Pain Intensity: 9 Pain Scale Used: 0-10 Numeric - Allergies/Home Medications Allergies/Adverse Reactions: Allergies Allergy/AdvReac Type Severity Reaction Status Date / Time No Known Allergies Allergy Verified 04/11/18 07:57 Home Medications: Home Medications ALPRAZolam TAB* [Xanax TAB*] 0.25 mg PO BID 06/09/14 [History Confirmed 04/11/18 ] FLUoxetine CAP* [Prozac CAP*] 06/07/17 [History] Albuterol 2.5MG/3ML (0.083%)* [Ventolin 2.5 MG/3 ML NEB.YAMILEX*] 2.5 mg INH Q6H PRN 30 Days #120 neb.yamilex 04/11/18 [Rx] Ibuprofen 600 mg 08/25/19 [History] PMH/Surg Hx/FS Hx/Imm Hx Psychological History: Anxiety, Depression - Surgical History Surgical History: Yes Surgery Procedure, Year, and Place: uterine polyps removed, cholecystectomy - Family History Known Family History: Positive: None, Hypertension - Grandfather, Diabetes - Grandfather, Other - HLD, [place], cholecystectomy - Social History Alcohol Use: Rare Substance Use Type: None Smoking Status (MU): Never Smoked Tobacco - Immunization History Most Recent Influenza Vaccination: 2016 Most Recent Tetanus Shot: utd Most Recent Pneumonia Vaccination: none Review of Systems All Other Systems Reviewed And Are Negative: No Constitutional: Positive: Negative Skin: Positive: Other - finger laceration Respiratory: Positive: Negative Cardiovascular: Positive: Negative Musculoskeletal: Positive: Negative Neurological/Mental Status: Positive: Negative Psychological: Positive: Negative Physical Exam - Summary Physical Exam Summary: GENERAL: NAD. WDWN. No pain distress. SKIN: LEFT 5th digit: finger pad with 5mm oval shaped partial thickness skin avulsion. Bleeding. Clean. CHEST: No accessory muscle use. Breathing comfortably and in no distress. CV: Pulses intact. Cap refill <2seconds NEURO: Alert. PSYCH: Age appropriate behavior. Triage Information Reviewed: Yes Vital Signs: Vital Signs: Temp Pulse Resp BP Pulse Ox 97.2 F 104 20 150/84 100 08/25/19 17:24 08/25/19 17:24 08/25/19 17:24 08/25/19 17:24 08/25/19 17:24 Vital Signs Reviewed: Yes Laceration Course/Dx - Course/Dx Course Of Treatment: Wound cleansed with saline. Wound not amenable to sutures, therefore gelfoam applied and dressed with tubegauze. tdap updated today - Diagnosis Provider Diagnosis: Skin avulsion Discharge ED - Sign-Out/Discharge Documenting (check all that apply): Patient Departure All imaging exams completed and their final reports reviewed: No Studies - Discharge Plan Condition: Stable Disposition: HOME Patient Education Materials: Skin Avulsion (ED) Referrals: Franco Madrigal MD [Primary Care Provider] - Additional Instructions: If you develop a fever, shortness of breath, chest pain, new or worsening symptoms - please call your PCP or go to the ED immediately. Your blood pressure was high at todays visit. Please see your primary provider within 4 weeks for recheck and re-evaluation. 1) Keep the bandage intact and in place for the next 3 days and then may remove the outer bandage 2) Keep the gel foam, that is adhered to your finger, in place for 7 days total and then may soak in warm water and remove. 3) Apply a band-aid until well healed - Billing Disposition and Condition Condition: STABLE Disposition: Home
[2019-08-25 17:30] VITALS: BP 150/84
[2019-08-25] MEDS ORDERED: Gelfoam 12-7 ADSORBABL SPONGE* 1 EA SPONGE TOPICAL ONE (17:38)
== END 2019-08-25 18:00 | disposition home or self-care (01) ==
LOC: UCEAST 17:21
DX: S61.216A Laceration without foreign body of right little finger without damage to nail, initial encounter (principal); X58.XXXA Exposure to other specified factors, initial encounter; Y92.9 Unspecified place or not applicable; F41.8 Other specified anxiety disorders; Z79.899 Other long term (current) drug therapy
CPT/HCPCS: 12031; 90715; 99211; A9270-GY; G0463